=== PATIENT | female | born 1965 | race Two or more races ===

== ENCOUNTER 2023-03-27 07:17 | Day surgery (SDC) | payer OTHER ==
[2023-03-24 12:03] LABS: HEMATOCRIT 42.2 % (36.0-45.00); HEMOGLOBIN 13.9 g/dL (12.0-15.00); MEAN CELL VOLUME 93.2 fL (80.00-100.00); MEAN CORPUSCULAR HEMOGLOBIN 30.8 pg (27.00-32.0); PH,URINE 6.5 (5.0-8.0); PLATELET COUNT 268 K/uL (150-450); RED BLOOD COUNT 4.52 M/uL (4.00-6.00); RED CELL DISTRIBUTION WIDTH 13.2 % (11.5-14.5); URINE APPEARANCE Clear; URINE BILIRRUBIN Negative (NEGATIVE); URINE BLOOD Negative; URINE COLOR Yellow; URINE GLUCOSE Negative (NEGATIVE); URINE LEUKOCYTE Negative; URINE NITRATE Negative; URINE PROTEIN Negative (NEGATIVE)
[2023-03-24 12:06] LABS: URINE EPITHELIAL CELLS 17.1 uL (0.0-38.8); URINE RBC 2.8 uL (0.0-20.8); URINE WBC 9.7 uL (0.0-23.2)
[2023-03-24 12:36] LABS: INR 1.01; PARTIAL THROMBOPLASTIN TIME 27.6 SECONDS (22.0-34.0); PROTHROMBIN TIME 10.6 SECONDS (9.0-11.5)
[2023-03-24 12:42] LABS: ALBUMIN 3.8 gm/dL (3.4-5.0); BILIRUBIN TOTAL 0.98 mg/dL (0.3-1.2); CALCIUM 9.6 mg/dL (8.5-10.1); CREATININE SERUM 0.89 mg/dL (0.55-1.02); GFR 65.14; GLOBULINA 4.4 G/DL (2.4-3.5); POTASSIUM 3.93 mEq/L (3.5-5.1); TOTAL PROTEIN 8.2 gm/dL (6.4-8.2)
[~2023-03-27] VITALS: Ht 165.1 cm; Wt 72.6 kg
[~2023-03-27 07:17] MED LIST: AVALIDE 300-121 EACH PO; CRESTOR10 MG PO; TENORMIN50 M1 PO
[2023-03-27] MEDS ORDERED: IBU600 MG PO (14:58)
[2023-03-27] MEDS ORDERED: MORGIDOX100 MG PO (14:58)
== END 2023-03-27 17:40 | disposition home or self-care (01) ==
LOC: CIR.AMB 07:17
PROVIDERS: ATTEND Obstetrics & Gynecology
DX: N84.0 Polyp of corpus uteri (principal); N95.0 Postmenopausal bleeding; D25.0 Submucous leiomyoma of uterus; Z20.822 Contact with and (suspected) exposure to COVID-19; I10 Essential (primary) hypertension; E78.5 Hyperlipidemia, unspecified